=== PATIENT | male | born 1980 | race Caucasian/White ===

== ENCOUNTER 2016-12-27 19:24 | Inpatient (IN) | payer OTHER ==
[~2016-12-27] VITALS: Ht 175.3 cm; Wt 90.4 kg
[2016-12-27] MEDS ORDERED: INSU100V SQ (19:37)
[2016-12-27 19:46] LABS: GLUCOSE,POINT OF CARE > 600 MG/DL (70-110)
[2016-12-27] MEDS ORDERED: SODIUM CHLORIDE 0.9% 1,000 ML IV ONE ×2 (20:30→21:30)
[2016-12-27 20:32] LABS: BASOPHILS % (AUTO) 0.6 % (0.0-2.0); EOSINOPHILS % (AUTO) 1.9 % (1.0-6.0); HEMATOCRIT 42.3 % (41-53); HEMOGLOBIN 14.3 g/dL (13.5-17.5); LYMPHOCYTES # (AUTO) 3.1 K/uL (1.0-4.8); LYMPHOCYTES % (AUTO) 24.5 % (22.0-44.0); MEAN CORPUSCULAR HEMOGLOBIN 29.6 pg (26.0-34.0); MEAN CORPUSCULAR HGB CONC 33.9 G/dL (31.0-37.0); MEAN CORPUSCULAR VOLUME 87 fL (80-100); MONOCYTES # (AUTO) 0.7 K/uL (0.1-1.0); MONOCYTES % (AUTO) 5.8 % (2.0-9.0); NEUTROPHILS # (AUTO) 8.5 K/uL (1.8-7.7); NEUTROPHILS % (AUTO) 67.2 % (40.0-70.0); PLATELET COUNT (AUTO) 341 K/uL (150-450); RED BLOOD CELL COUNT(AUTO) 4.83 MIL/uL (4.50-5.90); RED CELL DISTRIBUTION WIDTH 13.3 % (11.5-14.5); WHITE BLOOD COUNT (AUTO) 12.7 K/uL (4.5-11.0)
[2016-12-27 20:38] LABS: ADD UA MICROSCOPIC YES; APPEARANCE,URINE CLEAR (CLEAR); GLUCOSE, URINE (UA) >=1000 mg/dL (NEGATIVE); KETONES,URINE NEGATIVE (NEGATIVE); LEUKOCYTE ESTERASE ,URINE NEGATIVE (NEGATIVE); OCCULT BLOOD,URINE NEGATIVE (NEGATIVE); PROTEIN,URINE NEGATIVE (NEGATIVE)
[2016-12-27 20:48] LABS: RBC,URINE None Seen /HPF (0-2); SQUAMOUS EPITHELIAL CELL,UR Few /LPF (None Seen); WBC,URINE None Seen /HPF (0-5)
[2016-12-27 21:00] LABS: ALANINE AMINOTRANSFERASE 27 U/L (12-78); ALBUMIN 3.4 g/dL (3.4-5.0); ANION GAP 7 mmol/L (8-16); ASPARTATE AMINOTRANSFERASE 12 U/L (15-37); BILIRUBIN,TOTAL 0.5 mg/dL (0.1-1.0); CALCIUM, TOTAL 10.5 mg/dL (8.8-10.5); CARBON DIOXIDE 28 mmol/L (22-29); CHLORIDE 78 mmol/L (98-107); GLOMERULAR FILTR. RATE CALC 28 mL/min (>60); TOTAL PROTEIN, SERUM 7.7 g/dL (6.4-8.2); UREA NITROGEN, BLOOD 39 mg/dL (7-18)
[2016-12-27 21:03] LABS: SODIUM SERUM 113 mmol/L (136-145)
[2016-12-27] MEDS ORDERED: INSULIN REGULAR, HUMAN 100 UNITS in SODIUM CHLORIDE 0.9% 99 ML IV PRN ×4 (21:30→23:05)
[2016-12-27] MEDS ORDERED: DEXTROSE 5%-WATER 1,000 ML IV SCH (23:05)
[2016-12-27 23:12] LABS: GLUCOSE,POINT OF CARE > 600 MG/DL (70-110)
[2016-12-27] MEDS ORDERED: DEXTROSE 50%-WATER 25 GM/50 ML SYRINGE IVP PRN (23:15)
[2016-12-27 23:36] LABS: POTASSIUM 3.3 mmol/L (3.5-5.1)
[2016-12-27 23:37] LABS: CALCIUM, TOTAL 9.9 mg/dL (8.8-10.5); CREATININE 2.22 mg/dL (0.60-1.30)
[2016-12-28] MEDS ORDERED: POTASSIUM CHL 20 MEQ/0.45% NS 1,000 ML IV ONE (00:45)
[2016-12-28 01:02] LABS: GLUCOSE,POINT OF CARE 476 MG/DL (70-110)
[2016-12-28] MEDS ORDERED: DEXTROSE 50%-WATER 25 GM/50 ML SYRINGE IVP PRN ×2 (01:15→10:45)
[2016-12-28] MEDS ORDERED: INSULIN REGULAR, HUMAN 100 UNITS/ML SQ PRN (01:15)
[2016-12-28 01:54] VITALS: BP 118/63
[2016-12-28] MEDS ORDERED: PNEUMOCOCCAL VACCINE POLYVALENT 0.5 ML VIAL [PPSV23] IM ONE (03:45)
[2016-12-28 04:20] VITALS: BP 120/68
[2016-12-28 05:17] LABS: GLUCOSE COMMENT 1 Received Meds; GLUCOSE,POINT OF CARE 380 MG/DL (70-110)
[2016-12-28 05:46] LABS: BASOPHILS % (AUTO) 0.2 % (0.0-2.0); EOSINOPHILS % (AUTO) 4.6 % (1.0-6.0); HEMATOCRIT 39.6 % (41-53); HEMOGLOBIN 13.3 g/dL (13.5-17.5); LYMPHOCYTES # (AUTO) 4.7 K/uL (1.0-4.8); LYMPHOCYTES % (AUTO) 36.7 % (22.0-44.0); MEAN CORPUSCULAR HEMOGLOBIN 29.1 pg (26.0-34.0); MEAN CORPUSCULAR HGB CONC 33.5 G/dL (31.0-37.0); MEAN CORPUSCULAR VOLUME 87 fL (80-100); MONOCYTES # (AUTO) 0.8 K/uL (0.1-1.0); MONOCYTES % (AUTO) 6.3 % (2.0-9.0); NEUTROPHILS # (AUTO) 6.7 K/uL (1.8-7.7); NEUTROPHILS % (AUTO) 52.2 % (40.0-70.0); PLATELET COUNT (AUTO) 345 K/uL (150-450); RED BLOOD CELL COUNT(AUTO) 4.55 MIL/uL (4.50-5.90); RED CELL DISTRIBUTION WIDTH 13.1 % (11.5-14.5); WHITE BLOOD COUNT (AUTO) 12.8 K/uL (4.5-11.0)
[2016-12-28 06:44] LABS: BILIRUBIN,TOTAL 0.4 mg/dL (0.1-1.0); CALCIUM, TOTAL 10.1 mg/dL (8.8-10.5); CREATININE 1.76 mg/dL (0.60-1.30); POTASSIUM 3.1 mmol/L (3.5-5.1); TOTAL PROTEIN, SERUM 6.8 g/dL (6.4-8.2)
[2016-12-28 08:16] VITALS: BP 115/75
[2016-12-28] MEDS ORDERED: POTASSIUM CHL 10 MEQ/WATER 50 ML IV PRN (10:45)
[2016-12-28] MEDS ORDERED: POTASSIUM CHLORIDE 10% 40 MEQ/30 ML LIQUID UDCUP PO PRN (10:45)
[2016-12-28 11:43] VITALS: BP 112/71
[2016-12-28] MEDS: POTASSIUM CHLORIDE 20 MEQ ER TABLET PO PRN (11:44)
[2016-12-28] MEDS: INSULIN ASPART 100 UNITS/ML SQ PRN ×3 (11:47→20:33)
[2016-12-28] MEDS ORDERED: SitaGLIPtin PHOSPHATE 25 MG TABLET PO ONE (15:15)
[2016-12-28] MEDS ORDERED: IPRATROPIUM BROMIDE 0.5 MG/2.5 ML NEB SOLUTION NEB PRN (15:15)
[2016-12-28] MEDS ORDERED: ONDANSETRON HCL 4 MG/2 ML VIAL IVP PRN (15:15)
[2016-12-28] MEDS ORDERED: MAGNESIUM HYDROXIDE SUSPENSION 30 ML UDCUP PO PRN (15:15)
[2016-12-28] MEDS ORDERED: MORPHINE SULFATE 2 MG/ML SYRINGE IVP PRN (15:15)
[2016-12-28] MEDS ORDERED: ZOLPIDEM TARTRATE 5 MG TABLET PO PRN (15:15)
[2016-12-28] MEDS ORDERED: ALBUTEROL SULFATE 2.5 MG/0.5 ML NEB SOLUTION NEB PRN (15:15)
[2016-12-28] MEDS ORDERED: HYDROCODONE/ACETAMINOPHEN 5-325 MG TABLET PO PRN (15:15)
[2016-12-28] MEDS ORDERED: BISACODYL 10 MG RECTAL RECTAL SUPPOSITORY PR PRN (15:15)
[2016-12-28] MEDS ORDERED: ACETAMINOPHEN 325 MG TABLET PO PRN (15:15)
[2016-12-28 15:22] LABS: GLUCOSE COMMENT 1 Repeated; GLUCOSE,POINT OF CARE 254 MG/DL (70-110)
[2016-12-28 15:41] VITALS: BP 101/60
[2016-12-28] MEDS: HEPARIN SODIUM,PORCINE 5,000 UNITS/ML VIAL SQ SCH ×2 (17:36→23:21)
[2016-12-28] MEDS: MetFORMIN HCL 500 MG TABLET PO SCH (17:51)
[2016-12-28 20:03] VITALS: BP 124/81
[2016-12-28] MEDS: DOCUSATE SODIUM 100 MG CAPSULE PO SCH (20:31)
[2016-12-29 00:02] VITALS: BP 114/67
[2016-12-29 03:32] LABS: GLUCOSE COMMENT 1 Received Meds; GLUCOSE,POINT OF CARE 568 MG/DL (70-110)
[2016-12-29 03:32] LABS: GLUCOSE,POINT OF CARE 392 MG/DL (70-110)
[2016-12-29 04:54] VITALS: BP 107/57
[2016-12-29] MEDS: INSULIN ASPART 100 UNITS/ML SQ PRN ×2 (06:29→12:11)
[2016-12-29 06:52] LABS: GLUCOSE COMMENT 1 Received Meds; GLUCOSE,POINT OF CARE 318 MG/DL (70-110)
[2016-12-29 07:25] VITALS: BP 125/70
[2016-12-29] MEDS ORDERED: SitaGLIPtin PHOSPHATE 25 MG TABLET PO SCH (09:00)
[2016-12-29] MEDS ORDERED: PANTOPRAZOLE SODIUM 40 MG/VIAL IVP SCH (09:00)
[2016-12-29 09:05] LABS: BASOPHILS # (AUTO) 0.06 K/uL (0.00-0.20); BASOPHILS % (AUTO) 0.5 % (0.0-2.0); EOSINOPHILS # (AUTO) 0.43 K/uL (0.00-0.70); EOSINOPHILS % (AUTO) 3.49 % (1.0-6.0); HEMOGLOBIN 12.8 g/dL (13.5-17.5); LYMPHOCYTES # (AUTO) 4.9 K/uL (1.0-4.8); LYMPHOCYTES % (AUTO) 39.8 % (22.0-44.0); MEAN CORPUSCULAR HEMOGLOBIN 28.9 pg (26.0-34.0); MEAN CORPUSCULAR HGB CONC 32.7 G/dL (31.0-37.0); MEAN CORPUSCULAR VOLUME 88 fL (80-100); MONOCYTES # (AUTO) 0.9 K/uL (0.1-1.0); MONOCYTES % (AUTO) 7.3 % (2.0-9.0); PLATELET COUNT (AUTO) 333 K/uL (150-450); RED BLOOD CELL COUNT(AUTO) 4.41 MIL/uL (4.50-5.90); RED CELL DISTRIBUTION WIDTH 13.6 % (11.5-14.5); WHITE BLOOD COUNT (AUTO) 12.2 K/uL (4.5-11.0)
[2016-12-29 09:07] LABS: CALCIUM, TOTAL 10.1 mg/dL (8.8-10.5); CREATININE 1.73 mg/dL (0.60-1.30)
[2016-12-29 09:13] LABS: ALBUMIN 2.8 g/dL (3.4-5.0); BILIRUBIN,TOTAL 0.4 mg/dL (0.1-1.0); TOTAL PROTEIN, SERUM 6.4 g/dL (6.4-8.2)
[2016-12-29] MEDS ORDERED: SitaGLIPtin PHOSPHATE 50 MG TABLET PO SCH (09:23)
[2016-12-29] MEDS: DOCUSATE SODIUM 100 MG CAPSULE PO SCH (09:50)
[2016-12-29] MEDS: POTASSIUM CHLORIDE 20 MEQ ER TABLET PO PRN (09:50)
[2016-12-29] MEDS: MetFORMIN HCL 500 MG TABLET PO SCH (09:50)
[2016-12-29] MEDS: HEPARIN SODIUM,PORCINE 5,000 UNITS/ML VIAL SQ SCH (09:51)
[2016-12-29 09:58] LABS: MAGNESIUM 0.7 mg/dL (1.80-2.40)
[2016-12-29] MEDS ORDERED: MAGNESIUM SULFATE 4 GM/WATER 100 ML IV ONE (10:15)
[2016-12-29] MEDS ORDERED: MAGNESIUM OXIDE 400 MG TABLET PO ONE ×2 (10:15→14:30)
[2016-12-29] MEDS ORDERED: SODIUM CHLORIDE 0.9% 50 ML ONE (11:22)
[2016-12-29 11:46] VITALS: BP 122/75
[2016-12-29 12:32] LABS: GLUCOSE COMMENT 1 Received Meds; GLUCOSE,POINT OF CARE 163 MG/DL (70-110)
[2016-12-29] MEDS ORDERED: SODIUM CHLORIDE 0.9% 100 ML ONE (13:33)
[2016-12-29] MEDS ORDERED: SITA50 PO (13:59)
[2016-12-29] MEDS ORDERED: METF500T4 PO (13:59)
[2016-12-29 15:05] VITALS: BP 107/62
== END 2016-12-29 16:00 | disposition home or self-care (01) | DRG 420 ==
LOC: EMS 19:28 → UNDOADMIN 22:00 → 5N 22:00
PROVIDERS: ADMIT Hospitalist; ATTEND Hospitalist
PROC: 3E0234Z Introduction of Serum, Toxoid and Vaccine into Muscle, Percutaneous Approach (ICD-10-PCS; principal; 2016-12-28)
DX: E11.00 Type 2 diabetes mellitus with hyperosmolarity without nonketotic hyperglycemic-hyperosmolar coma (NKHHC) (principal); N28.9 Disorder of kidney and ureter, unspecified; E11.65 Type 2 diabetes mellitus with hyperglycemia; E87.1 Hypo-osmolality and hyponatremia; F17.210 Nicotine dependence, cigarettes, uncomplicated; Z23 Encounter for immunization
CPT/HCPCS: 82962; 83036; 83735; 84132; 90471; 96361; 96365; 96366; 99291; C9113; J1644; J1815; J3475; J3480; J7030; J7050; J7060

== ENCOUNTER 2017-03-10 12:03 | Inpatient (IN) | payer OTHER ==
[~2017-03-10] VITALS: Ht 172.7 cm; Wt 74.1 kg
[~2017-03-10 12:03] MED LIST: METF500T4 PO; SITA50 PO
[2017-03-10 12:18] LABS: GLUCOSE COMMENT 1 Repeated; GLUCOSE COMMENT 2 Doctor Notified; GLUCOSE,POINT OF CARE > 600 MG/DL (70-110)
[2017-03-10] MEDS ORDERED: SODIUM CHLORIDE 0.9% 1,000 ML IV ONE ×2 (13:00→14:15)
[2017-03-10 13:22] LABS: BASOPHILS % (AUTO) 0.6 % (0.0-2.0); EOSINOPHILS % (AUTO) 1.6 % (1.0-6.0); HEMATOCRIT 41.4 % (41-53); HEMOGLOBIN 13.7 g/dL (13.5-17.5); LYMPHOCYTES # (AUTO) 2.5 K/uL (1.0-4.8); LYMPHOCYTES % (AUTO) 25.7 % (22.0-44.0); MEAN CORPUSCULAR HEMOGLOBIN 29.3 pg (26.0-34.0); MEAN CORPUSCULAR HGB CONC 33.1 G/dL (31.0-37.0); MEAN CORPUSCULAR VOLUME 89 fL (80-100); MONOCYTES # (AUTO) 0.7 K/uL (0.1-1.0); MONOCYTES % (AUTO) 6.8 % (2.0-9.0); NEUTROPHILS # (AUTO) 6.3 K/uL (1.8-7.7); NEUTROPHILS % (AUTO) 65.3 % (40.0-70.0); PLATELET COUNT (AUTO) 294 K/uL (150-450); RED BLOOD CELL COUNT(AUTO) 4.67 MIL/uL (4.50-5.90); RED CELL DISTRIBUTION WIDTH 13.4 % (11.5-14.5); WHITE BLOOD COUNT (AUTO) 9.7 K/uL (4.5-11.0)
[2017-03-10 13:45] LABS: ALANINE AMINOTRANSFERASE 25 U/L (12-78); ALBUMIN 3.1 g/dL (3.4-5.0); ANION GAP 10 mmol/L (8-16); ASPARTATE AMINOTRANSFERASE 13 U/L (15-37); BILIRUBIN,TOTAL 0.5 mg/dL (0.1-1.0); CALCIUM, TOTAL 10.6 mg/dL (8.8-10.5); CARBON DIOXIDE 33 mmol/L (22-29); CHLORIDE 77 mmol/L (98-107); GLOMERULAR FILTR. RATE CALC 34 mL/min (>60); POTASSIUM 4.5 mmol/L (3.5-5.1); TOTAL PROTEIN, SERUM 7.2 g/dL (6.4-8.2); UREA NITROGEN, BLOOD 30 mg/dL (7-18)
[2017-03-10 13:46] LABS: OSMOLALITY 347 mOS/kg (270-310)
[2017-03-10 14:00] LABS: SODIUM SERUM 120 mmol/L (136-145)
[2017-03-10] MEDS ORDERED: ACETAMINOPHEN 325 MG TABLET PO PRN ×2 (14:15→15:00)
[2017-03-10] MEDS ORDERED: ONDANSETRON HCL 4 MG/2 ML VIAL IVP PRN ×2 (14:15→15:00)
[2017-03-10] MEDS ORDERED: 0.9% SODIUM CHLORIDE 10 ML SYRINGE IVP PRN (14:15)
[2017-03-10] MEDS ORDERED: LORazepam 2 MG/ML VIAL IVP ONE (14:45)
[2017-03-10] MEDS ORDERED: ENOXAPARIN SODIUM 40 MG/0.4 ML PF SYRINGE SQ SCH (15:00)
[2017-03-10] MEDS ORDERED: SODIUM CHLORIDE 0.9% 1,000 ML IV SCH ×2 (15:00→16:38)
[2017-03-10] MEDS ORDERED: ZOLPIDEM TARTRATE 5 MG TABLET PO PRN (15:00)
[2017-03-10] MEDS ORDERED: HYDROCODONE/ACETAMINOPHEN 5-325 MG TABLET PO PRN ×2 (15:00)
[2017-03-10] MEDS ORDERED: DEXTROSE 50%-WATER 25 GM/50 ML SYRINGE IVP PRN ×2 (15:00→16:45)
[2017-03-10 15:14] LABS: ABG A-A DIFF O2 19.6 mmHg (10-20.0); ABG BASE EXCESS 3.7 mmol/L (-2.0-3.0); ABG HCO3 27.1 mmol/L (22.0-26.0); ABG OXYHEMOGLOBIN 90.2 % (94.0-100.0); ABG PCO2 47 mmHg (35-45); ABG PH 7.403 (7.350-7.450); TEMPERATURE, FAHRENHEIT, BG 98.6 FAHREN (96.0-98.6)
[2017-03-10 15:16] LABS: ALLEN TEST, BLOOD GAS Positive
[2017-03-10 16:32] LABS: GLUCOSE,POINT OF CARE > 600 MG/DL (70-110)
[2017-03-10] MEDS ORDERED: SODIUM CHLORIDE 0.45% 1,000 ML IV PRN (16:38)
[2017-03-10] MEDS ORDERED: POTASSIUM CHL 20 MEQ/0.45% NS 1,000 ML IV PRN (16:38)
[2017-03-10] MEDS ORDERED: DEXTROSE 5%-0.45% SODIUM CHL 1,000 ML IV PRN (16:38)
[2017-03-10] MEDS ORDERED: POTASSIUM CHLORIDE 40 MEQ in SODIUM CHLORIDE 0.45% 1,000 ML IV PRN (16:38)
[2017-03-10] MEDS ORDERED: INSULIN REGULAR, HUMAN 100 UNITS/ML IVP ONE (16:45)
[2017-03-10 17:18] LABS: GLUCOSE,POINT OF CARE > 600 MG/DL (70-110)
[2017-03-10 17:18] LABS: CALCIUM, TOTAL 9.9 mg/dL (8.8-10.5); CREATININE 1.99 mg/dL (0.60-1.30)
[2017-03-10] MEDS ORDERED: INSULIN REGULAR, HUMAN 100 UNITS in SODIUM CHLORIDE 0.9% 99 ML IV PRN ×2 (17:31)
[2017-03-10 19:07] LABS: GLUCOSE,POINT OF CARE 561 MG/DL (70-110)
[2017-03-10 20:00] VITALS: BP 101/59
[2017-03-10] MEDS: DOCUSATE SODIUM 100 MG CAPSULE PO SCH (21:00)
[2017-03-10] MEDS: INSULIN DETEMIR 100 UNITS/ML SQ SCH (21:22)
[2017-03-10] MEDS: DEXTROSE 5%-WATER 1,000 ML IV SCH (21:26)
[2017-03-10 21:28] LABS: CALCIUM, TOTAL 10.7 mg/dL (8.8-10.5); CREATININE 1.86 mg/dL (0.60-1.30); POTASSIUM 3.1 mmol/L (3.5-5.1)
[2017-03-10] MEDS: INSULIN REGULAR, HUMAN 100 UNITS/ML IVP PRN ×2 (22:18→23:12)
[2017-03-10] MEDS: ENOXAPARIN SODIUM 40 MG/0.4 ML PF SYRINGE SQ SCH (22:19)
[2017-03-11] VITALS: BP 116/70
[2017-03-11] MEDS ORDERED: DEXTROSE 50%-WATER 25 GM/50 ML SYRINGE IVP PRN (00:30)
[2017-03-11] MEDS: DEXTROSE 5%-WATER 1,000 ML IV SCH (03:30)
[2017-03-11 04:00] VITALS: BP 109/73
[2017-03-11] MEDS: INSULIN ASPART 100 UNITS/ML SQ PRN ×2 (06:45→11:38)
[2017-03-11 07:23] LABS: BASOPHILS # (AUTO) 0.06 K/uL (0.00-0.20); BASOPHILS % (AUTO) 0.6 % (0.0-2.0); EOSINOPHILS # (AUTO) 0.32 K/uL (0.00-0.70); EOSINOPHILS % (AUTO) 2.99 % (1.0-6.0); HEMATOCRIT 40.4 % (41-53); HEMOGLOBIN 13.7 g/dL (13.5-17.5); MEAN CORPUSCULAR HEMOGLOBIN 29.5 pg (26.0-34.0); MEAN CORPUSCULAR HGB CONC 33.9 G/dL (31.0-37.0); MEAN CORPUSCULAR VOLUME 87 fL (80-100); MONOCYTES # (AUTO) 0.5 K/uL (0.1-1.0); MONOCYTES % (AUTO) 4.3 % (2.0-9.0); NEUTROPHILS # (AUTO) 5.9 K/uL (1.8-7.7); NEUTROPHILS % (AUTO) 55.2 % (40.0-70.0); PLATELET COUNT (AUTO) 283 K/uL (150-450); RED BLOOD CELL COUNT(AUTO) 4.64 MIL/uL (4.50-5.90); RED CELL DISTRIBUTION WIDTH 13.1 % (11.5-14.5); WHITE BLOOD COUNT (AUTO) 10.7 K/uL (4.5-11.0)
[2017-03-11 07:38] LABS: ALBUMIN 2.8 g/dL (3.4-5.0); BILIRUBIN,TOTAL 0.4 mg/dL (0.1-1.0); CALCIUM, TOTAL 10.7 mg/dL (8.8-10.5); CREATININE 1.37 mg/dL (0.60-1.30); PHOSPHORUS 2.5 mg/dL (2.5-4.9); POTASSIUM 3.1 mmol/L (3.5-5.1); TOTAL PROTEIN, SERUM 6.4 g/dL (6.4-8.2)
[2017-03-11 07:51] LABS: MAGNESIUM 0.8 mg/dL (1.80-2.40)
[2017-03-11 08:00] VITALS: BP 104/52
[2017-03-11] MEDS ORDERED: LANSOPRAZOLE 30 MG SOLUBLE TABLET PO SCH (09:00)
[2017-03-11] MEDS: ENOXAPARIN SODIUM 40 MG/0.4 ML PF SYRINGE SQ SCH (09:36)
[2017-03-11] MEDS: DOCUSATE SODIUM 100 MG CAPSULE PO SCH (09:36)
[2017-03-11] MEDS: INSULIN DETEMIR 100 UNITS/ML SQ SCH (09:41)
[2017-03-11] MEDS ORDERED: POTASSIUM CHLORIDE 40 MEQ in SODIUM CHLORIDE 0.9% 1,000 ML IV ONE (10:00)
[2017-03-11] MEDS ORDERED: POTASSIUM CHLORIDE 20 MEQ ER TABLET PO ONE (10:00)
[2017-03-11] MEDS ORDERED: MAGNESIUM SULFATE 4 GM/WATER 100 ML IV ONE (10:00)
[2017-03-11 11:36] LABS: CALCIUM, TOTAL 10.5 mg/dL (8.8-10.5); CREATININE 1.45 mg/dL (0.60-1.30); POTASSIUM 3.3 mmol/L (3.5-5.1)
[2017-03-11 12:00] VITALS: BP 124/64
[2017-03-11 16:00] VITALS: BP 126/74
[2017-03-12 08:07] LABS: GLUCOSE,POINT OF CARE 215 MG/DL (70-110)
[2017-03-12 12:12] LABS: GLUCOSE COMMENT 1 Received Meds; GLUCOSE,POINT OF CARE 427 MG/DL (70-110)
[2017-03-12 12:12] LABS: GLUCOSE COMMENT 1 Received Meds; GLUCOSE,POINT OF CARE 245 MG/DL (70-110)
[2017-03-12 12:12] LABS: GLUCOSE COMMENT 1 Received Meds; GLUCOSE,POINT OF CARE 407 MG/DL (70-110)
[2017-03-12 12:12] LABS: GLUCOSE,POINT OF CARE 96 MG/DL (70-110)
[2017-03-12 12:12] LABS: GLUCOSE,POINT OF CARE 103 MG/DL (70-110)
[2017-03-12 12:12] LABS: GLUCOSE COMMENT 1 Received Meds; GLUCOSE,POINT OF CARE 258 MG/DL (70-110)
[2017-03-12 12:12] LABS: GLUCOSE COMMENT 1 Received Meds; GLUCOSE,POINT OF CARE 487 MG/DL (70-110)
== END 2017-03-11 17:00 | disposition left against medical advice (07) | DRG 420 ==
LOC: EMS 12:05 → ICU 15:49 → 5S 15:49
PROVIDERS: ADMIT Internal Medicine; ATTEND Internal Medicine
DX: E11.00 Type 2 diabetes mellitus with hyperosmolarity without nonketotic hyperglycemic-hyperosmolar coma (NKHHC) (principal); Q60.0 Renal agenesis, unilateral; E11.22 Type 2 diabetes mellitus with diabetic chronic kidney disease; E86.0 Dehydration; N18.9 Chronic kidney disease, unspecified; F17.210 Nicotine dependence, cigarettes, uncomplicated; E87.1 Hypo-osmolality and hyponatremia; E11.319 Type 2 diabetes mellitus with unspecified diabetic retinopathy without macular edema; H54.7 Unspecified visual loss; E83.42 Hypomagnesemia; F15.10 Other stimulant abuse, uncomplicated; F12.10 Cannabis abuse, uncomplicated; Z91.14 Patient's other noncompliance with medication regimen; Z79.899 Other long term (current) drug therapy; Z79.84 Long term (current) use of oral hypoglycemic drugs; Z83.3 Family history of diabetes mellitus
CPT/HCPCS: 82010; 82805; 82962; 83605; 83735; 83930; 84100; 87081; 96361; 96374; 96375; 99291; J1650; J1815; J2060; J3475; J3480; J7030; J7050; J7060